=== PATIENT | female | born 1990 | race Caucasian/White ===

== ENCOUNTER → 2016-08-06 | Outpatient (CLI) | payer OTHER ==
[~2016-08-06] MED LIST: ACET50TA PO; IBUP60TA PO; VITAPRTA PO
[2016-08-06 16:40] LABS: BASO # 0.1 K/mm3 (0.0-0.2); BASO % 0.9 % (0.0-1.0); EOS # 0.1 K/mm3 (0.0-0.50); EOS % 1.6 % (0.0-3.0); LARGE UNSTAINED CELL # 0.2 K/mm3 (0.0-0.4); LARGE UNSTAINED CELL % 1.8 % (0.0-4.0); LYMPH # 2.1 K/mm3 (1.5-6.5); LYMPH % 21.7 % (24.0-44.0); MEAN CORPUSCULAR HEMOGLOBIN 29.3 pg (27.0-33.0); MEAN CORPUSCULAR HGB CONC 33.7 g/dl (32.0-36.5); MONO # 0.4 K/mm3 (0.0-0.8); MONO % 3.9 % (0.0-5.0); NEUTROPHILS # 6.2 K/mm3 (1.8-7.7); NEUTROPHILS % 70.1 % (36.0-66.0); PLATELET COUNT, AUTOMATED 228 k/mm3 (150-450)
[2016-08-07 12:53] LABS: WHITE BLOOD COUNT 8.9 K/mm3 (4.0-10.0)
[2016-08-07 13:36] LABS: CONTROL LINE INT CTR LINE PRESENT; HIV SCRN NEGATIVE (NEGATIVE); HIV SCRN1 NEGATIVE (NEGATIVE)
[2016-08-08 10:42] LABS: HBsAg Prenatal NEGATIVE (NEGATIVE)
== END ==
LOC: M LRY 11:52
PROVIDERS: ATTEND Advanced Practice Midwife
DX: Z34.81 Encounter for supervision of other normal pregnancy, first trimester (principal)

== ENCOUNTER → 2016-08-25 | Outpatient (REF) | payer OTHER | LOC: M LAB REF 13:43 | PROVIDERS: ATTEND Advanced Practice Midwife | DX: Z34.82 Encounter for supervision of other normal pregnancy, second trimester (principal) ==